=== PATIENT | male | born 1990 | race Caucasian/White ===

== ENCOUNTER 2023-10-21 15:47 | Emergency (ER) | payer SELFPAY ==
[2023-10-21 15:48] VITALS: BP 149/108; PULSE 86; RESP 18; TEMP 36.8; O2SAT 100; BMI 23.4
[2023-10-21] MEDS: AMOXICILLIN/CLAVULANATE POTASSIUM 875/125MG TABLET 1 EACH PO (16:08)
--- NOTE | 2023-10-21 16:32 | [facility].EDGENADL ---
Discharge Plan Disposition Patient Disposition: Home, Self-Care Prescriptions Prescriptions: New sulfamethoxazole-trimethoprim [Bactrim DS] 800-160 mg tablet 1 tab PO BID 7 Days Qty: 14 0RF Referrals Follow up/Referrals: Provider,Referral, [Primary Care Provider] - See instructions Activity Restrictions/Add. Instructions Additional Instructions/Restrictions: Ask for good Rx pricing on Bactrim. Take Bactrim and Augmentin for full 7-day course. Call your family doctor to establish care for this visit to the emergency department and schedule follow-up within 48 hours to ensure improvement. If you have any worsening of your condition or any other concerning signs or symptoms, return to the emergency department or your primary care doctor for further evaluation. Clinical Impressions Clinical Impression: Abscess of lip Instructions Patient Instructions: DI for Skin Abscess Discharge ED Provider: Jitendra George General Adult HPI General Chief complaint: Skin/Abscess/Foreign Body Stated complaint: bottom lip swelling Time Seen by Provider: 10/21/23 15:58 Mode of Arrival: Ambulatory Source of Information: Patient Limitations: No Limitations Description of Symptoms (Recalled from ER Triage Doc. by RN): Patient presents to ED with swollen bottom lip. Patient states he popped a pimple 3-4 days ago on his lip. Swelling and redness started at that time. Patient states his right side of face is also tender. History of Present Illness HPI narrative: 33-year-old male history of previous drug abuse, no other medical history presenting with lip swelling and redness. Patient states that he popped a pimple on his lip 3 to 4 days ago. Continued to swell. Was seen in ED yesterday, 10/19. Given an antibiotic they do not know the name of, discharged. Today its gotten worse. No swelling of his neck, tenderness or range of motion, voice changes, difficulty breathing or swallowing. Isolated to the lower lip. Came for further evaluation. Please note that above description of symptoms, in this electronic medical record under categorization of recalled from ER triage doctor by RN are reflective of an initial nursing assessment, however, is not reflective of my full history and physical exam that was personally taken and clarified. Consequentially, this preceding description of symptoms, which may include the patient's categorized chief complaint in the EMR, do not reflect my personal clinical impression, and the ultimate description of history of present illness and patient stated complaints should be deferred to this section of the note. Unless stated otherwise or congruent with this section of the note, additional signs, symptoms, or incongruence should be interpreted as inaccurate with my clinical impression. Related Data Previous Rx's Medication Instructions Recorded sulfamethoxazole 800 1 tab PO BID 7 days #14 tabs 10/21/23 mg-trimethoprim 160 mg tablet (Bactrim DS) Allergies Allergy/AdvReac Type Severity Reaction Status Date / Time No Known Allergies Allergy Unverified 06/21/17 14:53 [facility] Disclaimer: The information contained in this section may have been updated after the patient was seen, as this information can be updated by other users. Social History Smoking Status: Current every day smoker alcohol intake: never current occupational status: employed Travel in the last 8 weeks: None ROS Obtained: Yes All systems reviewed & no additional complaints except as documented Physical Exam General General appearance: alert and in no apparent distress Head Head exam: atraumatic and normocephalic Eye Eye exam: Present normal appearance, PERRL and EOMI ENT ENT exam: Present mucous membranes moist and other (Swelling and induration right side of the lower lip with obvious purulent drainage from small punctate lesions) Expanded ENT Exam Comment: No evidence of tonsillitis, exudate, pharyngeal erythema, uvular deviation, palatal swelling, trismus, dental abscess, angioedema, or other abnormal dylan pharyngeal findings Neck Neck exam: Present normal inspection, full ROM and trachea midline Respiratory Respiratory exam: Absent respiratory distress, wheezes, stridor, accessory muscle use or prolonged expiratory phase Cardiovascular Cardiovascular exam: Present normal rhythm Abdominal Exam Abdominal exam: Present soft; Absent distention, tenderness, guarding, rebound or rigidity Extremities Exam Extremities exam: Absent edema Neurological Exam Neurological exam: Present alert, oriented X3, CN II-XII intact and normal gait; Absent motor sensory deficit Skin Skin exam: Present warm and dry; Absent diaphoresis or erythema Medical Decision Making Medical Records Medical records reviewed: Yes I reviewed the patient's medical records. [place] Inquiry Pt receiving controlled substance: No [place] was queried for this patient: No Vital Signs: 10/21/23 15:48 Temperature 98.3 F Temperature Source Oral Pulse Rate [Right Radial] 86 Respiratory Rate 18 Blood Pressure [Right Arm] 149/108 H Blood Pressure Mean [Right Arm] 121 Blood Pressure Source [Right Arm] Automatic Cuff Blood Pressure Position [Right Arm] Sitting 02 Sat by Pulse Oximetry 100 Oxygen Delivery Method Room Air Orders (Tests/Meds): ED MEDICATIONS Discontinued Medications Generic Name Dose Route Start Last Admin Trade Name Zhao PRN Reason Stop Dose Admin Amoxicillin/Clavulanate Potassium 1 each 10/21/23 16:02 10/21/23 16:08 Amoxicillin/Clavulanate Potassium 875/125mg Tablet PO 10/21/23 16:03 1 each ONCE ONE Administration Lidocaine HCl 10 ml 10/21/23 16:02 Lidocaine 1% 10ml Mdv SQ 10/21/23 16:03 ONCE ONE ORDERS Category Date Time Status POCUS Point of Care (ER Only) Stat Exams 10/21/23 16:02 Ordered Medical Decision Narrative: 33-year-old male history of previous drug abuse, no other medical history presenting with lip swelling and redness. Patient states that he popped a pimple on his lip 3 to 4 days ago. Continued to swell. Was seen in ED yesterday, 10/19. Given an antibiotic they do not know the name of, discharged. Today its gotten worse. No swelling of his neck, tenderness or range of motion, voice changes, difficulty breathing or swallowing. Isolated to the lower lip. Came for further evaluation. History obtained with patient and significant other. On arrival, patient hemodynamically stable, alert, appropriate he does have swelling of his lower right lip with significant induration and purulent drainage. No other concerning findings. Differential includes cellulitis, abscess, necrotizing infection, among others. Bedside [id number] ultrasound with large fluid collection with loculations that does not appear to extend to bone. Patient was anesthetized with 1% lidocaine and 0.5 cm incision was made on the inferior aspect of the lip on the right side. About 2 cc of frankly purulent material was drained. Loculations were broken up with hemostats. Patient was given Augmentin and Bactrim. Family able to bring in antibiotic patient was on shortly after this, it is Augmentin. I feel this is appropriate, I am adding Bactrim to his regimen because patient has history of MRSA infections. Because patient at baseline without signs or symptoms of clinical decompensation, deemed appropriate for discharge. Results were relayed to patient who voiced understanding and were agreeable to outpatient management and follow up. I discussed my clinical impression with patient and answered all questions. At this time, the evidence for any other entities in the differential is insufficient to warrant any further testing or ED observation. This was explained as well. Advisory was given that persistent or worsening symptoms require further evaluation. I confirmed the understanding of this discussion. Procedures Abscess I/D Site: lip Side (if applicable): right Local Anesthetic: lidocaine 1% (Mental nerve block) Amount of anesthesia used (mL): 10 Technique: incised with #11 blade Amount of fluid expressed (mL): 2 Irrigation: Yes Packing used?: none Limited Ultrasound Indication:: Limited soft tissue ultrasound Indication: Right-sided lower lip swelling Identified structures: Location: Soft tissue structures of lip and chin Findings: Subcentimeter abscess right side of lip with associated induration. Impression: Abscess within lower lip Images were saved to permanent archive The study was technically adequate Soft Tissue CPT Codes: CPT Neck: 80689-90 CPT Upper extremity: 40122-32 CPT Axilla: 06582-23 CPT Chest wall: 50498-95 CPT Breast: 24270-24-UI/LT (complete), 92164-96-JZ/LT (limited), CPT Upper Back: 43263-03 CPT Lower Back: 67237-96 CPT Abdominal Wall: 22121-35 CPT Pelvic Wall: 75567-74 CPT Lower Extremity: 49669-57 CPT Other Soft Tissue: 04892-79 This study was performed by me, and I personally interpreted all images/videos. Based on my clinical judgement, these images were adequate and did not necessitate further imaging. Critical Care Critical Care Time Critical Care Time: No
[2023-10-21] MEDS: SULFA/TRIMETHOPRIM 1 TABLET 1 EACH PO (16:37)
[2023-10-21] MEDS: LIDOCAINE 1% 10ML MDV 10 ML SQ (16:38)
[2023-10-21 16:43] VITALS: BP 146/85; PULSE 90; RESP 18; TEMP 36.8; O2SAT 98
== END 2023-10-21 16:46 | disposition home or self-care (01) ==
PROVIDERS: Emergency Provider Emergency Medicine
DX: F17.210 Nicotine dependence, cigarettes, uncomplicated; L02.01 Cutaneous abscess of face
CPT/HCPCS: 10060; 99284